=== PATIENT | male | born 1955 | race Caucasian/White ===

== ENCOUNTER 2018-05-25 14:42 | Inpatient (IN) | payer MEDICARE ==
[~2018-05-25] VITALS: Ht 185.4 cm; Wt 90.7 kg
[2018-05-25 18:19] VITALS: BP 146/86
[2018-05-25] MEDS ORDERED: MAGNESIUM HYDROXIDE 30 ML UDC PO PRN (18:30)
[2018-05-25] MEDS ORDERED: MAG HYDROX/AL HYDROX/SIMETH 30 ML UDC PO PRN (18:30)
[2018-05-25] MEDS ORDERED: ACETAMINOPHEN 325 MG TABLET PO PRN (18:30)
--- NOTE | 2018-05-25 18:30 | NUR ---
GPS/RN RECEIVED PT DIREST ADMIT FROM [facility] ON 5150 FOR DTO PT IS AMBULATORY NO SI OR HI AT THE TIME OF ADMISSION. VSS. ADMITTING ORDERS FROM DR CAMARENA RECEIVED AND CARRIED OUT. PROPERTY CHECKED FOR CONTRABAND. DINNER PROVIDED. FACE PICTURES TAKEN BUT PT REFUSED FULL BODY ASSESSMENT AT THIS TIME. NO ACTIVE HOME MEDICATIONS REPORTED THE TIME OF ADMISSION.CONSENTS SIGN .PT PROVIDED WITH SHOWER. ENDORSED TO NOVEM RN TO CONTINUE WITH ADMISSION.
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
[2018-05-26] MEDS: DIVALPROEX SODIUM 250 MG TABLET.DR PO SCH ×3 (10:00→21:00)
[2018-05-26] MEDS: HALOPERIDOL 5 MG TABLET PO SCH ×2 (11:02→17:28)
[2018-05-26] MEDS: BENZTROPINE MESYLATE (1 MG) 1 MG TABLET PO SCH ×2 (11:02→17:28)
[2018-05-26] MEDS: LORAZEPAM 0.5 MG TABLET PO PRN (11:03)
--- NOTE | 2018-05-26 11:08 | NUR ---
GPS/RN-NOTES PATIENT SELECTIVE WITH MEDICATIONS,AGITATED AND VERBALLY THREATENING TO THE HEALTH INSURANCE ADJUSTER AND DR. DICKERSON. REFUSED DEPAKOTE AGREED TO TAKE HALDOL AND COGENTIN ONLY.NOTED PATIENT ALSO WITH ANGRY AND THREATENING BEHAVIOR. STATED" GET OUT AND GO TO HELL,IM SMARTER THAN YOU ALL". PATIENT AGREED TO HAVE ATIVAN 1MG P.O PRN ORDER. WILL CONT. MONITORING FOR SAFETY AND BEHAVIOR.
--- NOTE | 2018-05-26 12:10 | NUR ---
GPS/RN-NOTES PATIENT EATING HIS LUNCH,CALM NO ACUTE DISTRESS NOTED.
--- NOTE | 2018-05-26 21:14 | NUR ---
GPS RN NOTE: PATIENT REFUSED SCHEDULED DEPAKOTE. PATIENT STATED "IT'S A POISON AND IT MAKES ME BURP". DESPITE OF EDUCATION PT. STRONGLY REFUSED. WILL CONTINUE TO MONITOR.
[2018-05-27] MEDS: HALOPERIDOL 5 MG TABLET PO SCH ×2 (08:20→16:29)
[2018-05-27] MEDS: BENZTROPINE MESYLATE (1 MG) 1 MG TABLET PO SCH ×2 (08:20→16:29)
[2018-05-27] MEDS: DIVALPROEX SODIUM 250 MG TABLET.DR PO SCH (08:20)
--- NOTE | 2018-05-27 09:42 | NUR ---
TARASOFF REPORT: SW contacted [facility] [phone] and spoke with Lisa, social security specialist who confirmed IRENE DiazW who wrote pts hold contacted [place] PD Department to make a TARASOFF report. Police Department stated that they do not have an office by the name of "Jose G Charlton" who pt identified as wanting to kill.
--- NOTE | 2018-05-27 10:32 | NUR ---
TARASOFF REPORT: SW contacted [facility] Police Station Address: [address] [place] [address] and left a voicemail with detectives informing them pt has reported that once discharged he will kill all police officers. SW will continue to attempt to reach a campus police officer to make a report.
[2018-05-27] MEDS: GABAPENTIN 100 MG CAPSULE PO SCH ×3 (10:49→16:29)
--- NOTE | 2018-05-27 12:46 | NUR ---
GPS RN NOTE: PT REFUSED SKIN ASSESSMENT, REFUSED VS,REFUSED LABS , REFUSED TO SIGN PAPER TO OBTAIN MEDICAL RECORD, PT EASILY AGITATED, THREADING AFTER DISCHARGE TO KILL POLICE OFFICERS. CHARGE NURSE, PRESS WASHER, NOTIFIED. WILL CONTINUE MONITORING FOR SAFETY AND BEHAVIOR Q 15 MIN.
--- NOTE | 2018-05-27 20:00 | NUR ---
GPS RN NOTES: PT. REFUSED VITAL SIGNS , ENCOURAGED X3 , EXPLAINED RISKS AND BENEFITS , BUT STILL REFUSED .
[2018-05-28] MEDS: GABAPENTIN 100 MG CAPSULE PO SCH ×3 (08:09→17:33)
[2018-05-28] MEDS: HALOPERIDOL 5 MG TABLET PO SCH ×3 (08:10→17:33)
[2018-05-28] MEDS: BENZTROPINE MESYLATE (1 MG) 1 MG TABLET PO SCH ×2 (08:10→17:33)
--- NOTE | 2018-05-28 11:04 | NUR ---
INITIAL DISCHARGE PLAN: Per pt he wishes to return to his board and care located at [address] [place] [address]. SW will attempt to confirm pts current living situation as hold stated he is currently homeless. SW will help form a safe and proper discharge in collaboration with pt and MD.
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
--- NOTE | 2018-05-28 15:09 | NUR ---
KENIA received a phone call from katty Mccord clinician at [facility] Address: [address] [address], [place], [place] [address]. who confirmed pt is chronically homeless however, has accepted transitional housing at [address] [place] [address]. Suri stated that is where pt will go once discharged from the hospital. Suri, also stated that pt is under the care of Kay Bruce PA-C who will continue treating pt.
[2018-05-29 08:00] VITALS: BP 169/98
[2018-05-29] MEDS: GABAPENTIN 100 MG CAPSULE PO SCH ×3 (09:09→17:46)
[2018-05-29] MEDS: LORAZEPAM 0.5 MG TABLET PO PRN (09:09)
--- NOTE | 2018-05-29 09:09 | NUR ---
RN NOTE :PATIENT C/O ANXIETY MEDICATED WITH ATIVAN 1MG PO X1.
[2018-05-29] MEDS: BENZTROPINE MESYLATE (1 MG) 1 MG TABLET PO SCH ×2 (09:10→17:46)
[2018-05-29] MEDS: HALOPERIDOL 5 MG TABLET PO SCH ×3 (09:11→17:47)
--- NOTE | 2018-05-29 15:19 | NUR ---
KENIA met with Manager Outreach Watts who came to serve pt with a restraining order from pts brother Adelso Weaver [phone]. Due to pt being on a hold, legally pt is unable to be served until he is discharged from the hospital. KENIA will give packet to pt and instruct him to read and sign paperwork that he needs to mail to the 's Department acknowledging he received the restraining order.
--- NOTE | 2018-05-29 20:00 | NUR ---
GPS RN NOTES: PT. REFUSED VITAL SIGNS , ENCOURAGED X3 , EXPLAINED RISKS AND BENEFITS , BUT STILL REFUSED .
[2018-05-30] MEDS: HALOPERIDOL 5 MG TABLET PO SCH ×3 (08:11→16:18)
[2018-05-30] MEDS: BENZTROPINE MESYLATE (1 MG) 1 MG TABLET PO SCH ×2 (08:11→16:18)
[2018-05-30] MEDS: GABAPENTIN 100 MG CAPSULE PO SCH ×3 (08:11→16:18)
--- NOTE | 2018-05-30 11:04 | NUR ---
RN-CO: FAXED TO [facility] THE AUTHORIZATION OF THE PATIENT FOR THE DISCLOSURE OF HIS MEDICAL RECORDS.RE: HIS H&P PER ANA MARIA MCHUGH'S ORDER AND CHEST XRAY PER REQUEST OF THE PATIENT. AWAITING FOR THE RECORDS. Addendum: 05/30/18 at 1108 by VIVIENNE SALAS RN RN-CO: [facility] MEDICAL RECORD TEL NO. [phone], FAX NO [phone].
--- NOTE | 2018-05-30 11:48 | NUR ---
RN-CO: CORRECTED FAX NUMBER: OF [facility] IN [place] [phone]
--- NOTE | 2018-05-30 14:05 | NUR ---
KENIA contacted [facility] Civil Management [place] [phone] and spoke with clerk Ivone and informed her that the restraining order brought to the pt at the hospital by Deputy Monroe has not been giving to pt yet and also stated that the hospital administration is discussing how to proceed with giving pt the restraining order. KENIA informed the video rental clerk that pt will be discharging on Sunday06/04/18. Ivone stated that Deputy Monroe was out of the office until Sunday06/03/18 and would give the information to the [place] on duty
--- NOTE | 2018-05-30 14:10 | NUR ---
KENIA received a call from Lani pts showcase maker at [facility] Address: [address] [address], [place], [place] [address] requesting discharge information for pt. KENIA informed her that pt is discharging on Sunday06/04/18 and also informed her that pt will be served with a restraining order placed by pts brother Adelso. Lani was shocked to hear that pts brother has placed a restraining order against pt. KENIA provided her with [facility]'s Department contact information and informed her that hospital administration is currently working on how to handle giving the restraining order to pt. KENIA also informed her that pt is unaware that the restraining exist and asked for her not to inform pt until KENIA had discussed with pts treatment team and hospital administration. Lani agreed.
--- NOTE | 2018-05-30 15:38 | NUR ---
RN-CO: TRIED TO FAX THE AUTHORIZATION FOR DISCLOSURE OF HEALTH INFORMATION TO [facility] SEVERAL TIMES W/ BUSY RESPONSE. HOWEVER VERIFIED FAX NUMBER IF CORRECT. WILL CONTINUE TRYING.
[2018-05-31 08:00] VITALS: BP 145/78
[2018-05-31] MEDS: HALOPERIDOL 5 MG TABLET PO SCH ×2 (08:04→16:23)
[2018-05-31] MEDS: GABAPENTIN 100 MG CAPSULE PO SCH ×4 (08:04→21:06)
[2018-05-31] MEDS: BENZTROPINE MESYLATE (1 MG) 1 MG TABLET PO SCH ×2 (08:04→16:23)
--- NOTE | 2018-05-31 19:40 | NUR ---
RN OPENING NOTES RECEIVED REPORT FROM DAYSHIFT RN. FOUND Pt AWAKE, IN THE BATHROOM. NO S/S OF ACUTE DISTRESS OR SOB NOTED. RESPIRATIONS EVEN AND UNLABORED. SAFETY MEASURES IN PLACE. WILL CONTINUE TO MONITOR Pt's CONDITION AND SAFETY THROUGHOUT THE NIGHT.
--- NOTE | 2018-05-31 21:05 | NUR ---
RN NOTES Pt REFUSED THE 2000 VITAL SIGN
[2018-05-31] MEDS: ZOLPIDEM TARTRATE 5 MG TABLET PO PRN (21:07)
--- NOTE | 2018-06-01 07:32 | NUR ---
RN MAYDA NOTES NO SIGNIFICANT CHANGES IN Pt's CONDITION. Pt REMAINS STABLE PER BASELINE. NO S/S OF ACUTE DISTRESS OR SOB NOTED DURING THE NIGHT. ALL NEEDS MET AND ATTENDED. SAFETY MEASURES IN PLACE. ENDORSED TO CELINA LEMONS FOR Pt's ALVAREZ.
[2018-06-01] MEDS: HALOPERIDOL 5 MG TABLET PO SCH ×2 (09:34→17:12)
[2018-06-01] MEDS: BENZTROPINE MESYLATE (1 MG) 1 MG TABLET PO SCH ×2 (09:34→17:11)
[2018-06-01 10:10] LABS: BASOPHILS % (AUTO) 0.9 % (0.0-2.0); EOSINOPHILS % (AUTO) 1.9 % (0.0-6.0); HEMATOCRIT 48 % (39-51); HEMOGLOBIN 15.9 g/dL (13.5-17.5); LYMPHOCYTES # (AUTO) 1.4 /CMM (0.8-4.8); LYMPHOCYTES % (AUTO) 30.1 % (20.0-44.0); MEAN CORPUSCULAR HGB CONC 33 g/dl (31.0-36.0); MEAN CORPUSCULAR VOLUME 87 fL (80-96); MONOCYTES # (AUTO) 0.4 /CMM (0.1-1.30); MONOCYTES % (AUTO) 7.8 % (2.0-12.0); NEUTROPHILS # (AUTO) 2.8 /CMM (1.8-8.9); NEUTROPHILS % (AUTO) 59.3 % (43.0-81.0); PLATELET COUNT (AUTO) 287 /CMM (150-450); RED BLOOD CELL COUNT(AUTO) 5.48 MIL/uL (4.5-6.0); WHITE BLOOD COUNT (AUTO) 4.8 K/uL (4.3-11.0)
[2018-06-01 10:17] LABS: CALCIUM, SERUM 8.5 mg/dL (8.5-10.1); CREATININE 0.9 mg/dL (0.6-1.3); POTASSIUM 4.3 mmol/L (3.5-5.1)
[2018-06-01] MEDS: GABAPENTIN 300 MG CAPSULE PO SCH ×3 (11:02→21:43)
--- NOTE | 2018-06-01 15:28 | NUR ---
walking about in halls,no complaints offered.
--- NOTE | 2018-06-01 18:57 | NUR ---
refused vitals all day.
[2018-06-01] MEDS: ZOLPIDEM TARTRATE 5 MG TABLET PO PRN (22:05)
[2018-06-02] MEDS: GABAPENTIN 300 MG CAPSULE PO SCH ×4 (09:31→20:18)
[2018-06-02] MEDS: BENZTROPINE MESYLATE (1 MG) 1 MG TABLET PO SCH ×2 (09:31→17:04)
[2018-06-02] MEDS: HALOPERIDOL 5 MG TABLET PO SCH ×2 (09:32→17:04)
[2018-06-02] MEDS: ZOLPIDEM TARTRATE 5 MG TABLET PO PRN (22:48)
[2018-06-03] MEDS: HALOPERIDOL 5 MG TABLET PO SCH (08:42)
[2018-06-03] MEDS: BENZTROPINE MESYLATE (1 MG) 1 MG TABLET PO SCH (08:42)
[2018-06-03] MEDS: GABAPENTIN 300 MG CAPSULE PO SCH (08:42)
--- NOTE | 2018-06-03 09:30 | NUR ---
KENIA contacted Suri, pts clinician at [facility] Address: [address] [id number], [place], [place] [address] to inform her pt is discharging on this present day. Suri stated that due to short notice mental health team is unable to transport pt home. KENIA also provided her with the contact information for Follow Up Rep's Department and informed her about the existing restraining order. She state she would contact the Follow Up Rep's Department to inquire more on restraining order. KENIA also faxed clinical paperwork to [phone]
--- NOTE | 2018-06-03 09:30 | NUR ---
RN-CO: DR CAMARENA SEEN AND EXAMINED THE PATIENT WITH ORDER TO DISCONTINUE HOLD AND DISCHARGE PATIENT TODAY. EUGENIE ZEPEDA FULLER BRUSH WORKER ALSO SEEN THE PATIENT AND MEDICALLY CLEARED THE PATIENT FOR DISCHARGE. PATIENT REMAIN CALM AND COOPERATIVE. DENIED SUICIDAL AND HOMICIDAL IDEATION. DENIED AUDITORY AND VISUAL HALLUCINATION. ALL DISCHARGE PAPERS AND PRESCRIPTION WAS EXPLAINED TO THE PATIENT AND HE VERBALIZED UNDERSTANDING. PATIENT'S SHIPYARD LABORER IS AWARE OF HIS DISCHARGE (JEREMY- [phone]) PATIENT IS GOING HOME AND WAS PICKED UP BY [employer]. PATIENT WAS ESCORTED BY STAFF IN THE LOBBY WITH ALL HIS BELONGINGS AND VALUABLES AT 1315.
--- NOTE | 2018-06-03 09:39 | NUR ---
KENIA contacted [facility] Civil Management [place] [facility] [phone] and spoke with clerk Ping and informed her that pt is discharging on this present day. She stated that per [facility]'s Department system, it was stated that Deputy Monroe was unable to serve pt due to pt being hospitalized and the nursing supervision, Shari, not providing the [place] with any information due to HIPAA and pt is now classified in their system as not found. KENIA informed her that Deputy Monroe dropped off the restraining order in an envelope at the nurses station. Ping stated that she would have Deputy Monroe call KENIA as the information in their system is different than what KENIA informed her.
--- NOTE | 2018-06-03 10:29 | NUR ---
KENIA contacted [facility] Department Civil Management [place] [facility] Office [phone] and spoke with Jammie, station supervisor and she confirmed that Deputy Monroe wrote in his notes that the document was not served and that the restraining order was pending. KENIA informed Jammie, that Deputy Monroe left the restraining order here and advised SW to give pt the documents once discharged. Jammie, spoke with Heidi Ji who stated that the Plaintiff who is pts brother Lopez Weaver requested [place] Monroe leave restraining order at the hospital. Per Jammie, she stated that it was up to the hospitals digression whether or not they wanted to give the restraining order to the pt.
--- NOTE | 2018-06-03 11:02 | NUR ---
KENIA faxed clinical information to katty Mccord clinician at [facility] Address: [address] [place] [address], [place], [place] .
--- NOTE | 2018-06-03 12:37 | NUR ---
KENIA received a phone call from pts brother Lopez Weaver [phone] asking SW to serve pt with restraining order. KENIA informed him that due to hospital policy, SW was unable to sign and serve pt. SW advised brother to coordinate with 's Department.
--- NOTE | 2018-06-03 12:40 | NUR ---
DISCHARGE NOTE: Pt was discharged at 12:30pm via taxi voucher to his transitional home at [address] [facility] [address]. Pts case packer Lani [phone] ex:[phone] has been notified and will be visiting pt this afternoon. Pt will be seen by Kay Bruce NP, [place] Address: [address] [place] [address] on Monday June 04, 2018 at 9:00am to continue psychiatric treatment. Pt was given a referral to [facility] Medical [place] [address] [facility] [id number] . Patient was provided referrals to address his substance/alcohol use. Patient was referred to [facility]: [address] [place] [address] and will report for an Intake on Monday June 04, 2018 before 5:00pm. Additional resources included [facility] [address] [place] [address] and [facility] [address] [place] [address] . For smoking cessation, patient was referred to the [employer] [place] [employer] and [employer] [place] [employer] [id number]. Pt will also participate in a telephone meeting with [facility] [phone] on Monday June 04, 2018 at 12:00pm. The multidisciplinary exitcare form was done, printed, signed, and given to the patient. Addendum: 06/03/18 at 1342 by SANDRA AQUINO Pts mood is euthymic with congruent affect. Pt denied suicidal/homicidal ideations and denied visual/auditory hallucinations.
--- NOTE | 2018-06-19 13:13 | NUR ---
15 DAY SUBSTANCE ABUSE FOLLOW UP: unable to follow up due to pt having no phone.
== END 2018-06-03 13:12 | disposition home or self-care (01) | DRG 885 ==
LOC: GPS 17:52
PROVIDERS: ADMIT Psychiatry & Neurology Psychiatry; ATTEND Psychiatry & Neurology Psychiatry
DX: F25.0 Schizoaffective disorder, bipolar type (principal); Z59.0 Homelessness; Z91.19 Patient's noncompliance with other medical treatment and regimen; R45.850 Homicidal ideations; Z73.6 Limitation of activities due to disability
CPT/HCPCS: 36415; 80048-TC; 80061-TC; 85025-TC

== ENCOUNTER 2021-08-11 19:58 | Inpatient (IN) | payer MEDICARE, OTHER ==
[~2021-08-11] VITALS: Ht 188 cm; Wt 98.0 kg
[2021-08-11 20:00] VITALS: BP 119/57
[2021-08-11] MEDS ORDERED: AMLO-213 PO (20:34)
[2021-08-11] MEDS ORDERED: GABA300C PO (20:35)
[2021-08-11] MEDS ORDERED: QUET100T PO (20:36)
[2021-08-11] MEDS ORDERED: OLAN10TA3 PO (20:37)
[2021-08-11] MEDS ORDERED: TRAZ-182 PO (20:37)
[2021-08-11] MEDS ORDERED: CELE100C2 PO (20:38)
[2021-08-11] MEDS ORDERED: MAGNESIUM HYDROXIDE 30 ML UDC PO PRN (21:00)
[2021-08-11] MEDS ORDERED: MAG HYDROX/AL HYDROX/SIMETH 30 ML UDC PO PRN (21:00)
[2021-08-11] MEDS ORDERED: BLOOD SUGAR DIAGNOSTIC 1 EACH STRIP IN ONE (21:00)
[2021-08-11] MEDS ORDERED: ZOLPIDEM TARTRATE 5 MG TABLET PO PRN (21:00)
[2021-08-11 23:32] VITALS: BP 127/80
--- NOTE | 2021-08-11 23:56 | NUR ---
RN NOTES : ADMISSION NOTES: ADMITTED THIS 66Y/O MALE PATIENT ADMIT FROM [facility], ADMITTED TO GPS ON 5150 HOLD, PER HOLD DTS, SUICIDAL IDEATION IN THE CONTEXT OF ALCOHOL ABUSE AND NON ADHERENCE TO MEDICATION ,UPON FACE TO FACE ASSESSMENT PATIENT IS A&O X 3 UNCOOPERTIVE, AGGRESSIVE, HYPERVERBAL , DISORGNIZED, FORGETFUL, ,DISHELVED ,EASILY AGITATED , VERY POOR HYGINE , DENIES SI /HI AT THIS TIME, PT. IS POOR HISTORIAN, POOR INSIGHT ,POOR JUDGEMENT , BOTH MD AWARE AND NOTIFIED OF THE ADMISSION, BELONGINGS CONTRABAND WERE DONE , PT. REFUSED TO SIGNS ADMISSION CONSENT PAPERS DUE TO TIRED , REFUSED SKIN ASSESSMENT REFUSED ACCU CHECK , ENCOURAGED PT. STRONGLY REFUSED , ENCOURAGED BUT PT. STILL REFUSED, PT. IS POOR HISTORIAN, POOR INSIGHT ,POOR JUDGEMENT , BOTH MD AWARE AND NOTIFIED OF THE ADMISSION, BELONGINGS CONTRABAND WERE DONE ,ENCOURAGED PT. TO TAKE SHOWER, PT. RIGHTS DISCUSS BY MANAGER E LEARNING , PROVIDE THE PT. WITH HANDBOOK, AND MEDICATIONS GUIDE, ENVIRONMENTAL SAFETY CHECK DONE, ENCOURAGED PT. VERBALIZED ANY FEELING CONCERN TO STAFF, ORIENT TO UNIT POLICY, NO ACUTE DISTRESS NOTED,VITAL SIGNS WNL ,DENIES ANY PAIN AT THIS TIME,WILL CONTINUE TO MONITOR FOR Q15 SAFETY AND BEHAVIOR.
--- NOTE | 2021-08-12 00:07 | NUR ---
RN NOTES : REFUSED SKIN ASSESSMENT PT. REFUSED SKIN ASSESSMENT AND PHOTOS TAKEN , PT. BEHAVIOR UNCOOPERTIVE , NONREDIRECTABLE, LOUD HYPERVERBAL , ENCOURAGED RISKS AND BENEFITS EXPLINED BUT PT. STRONGLY REFUSED ,PER PT. MY SKIN IS FINE , WILL CONTINUE TO MONITOR.
--- NOTE | 2021-08-12 01:13 | NUR ---
RN NOTES : PT. REFUSED MRSA NARES SWAB , PT. BEHAVIOR UNCOOPERTIVE , NONREDIRECTABLE , ENCOURAGED RISKS AND BENEFITS EXPLINED BUT PT. STRONGLY REFUSED .
--- NOTE | 2021-08-12 06:43 | NUR ---
RN NOTES: PLACE CALLED TO [phone], REGARDING ABOUT PT. ADMIT TO [facility] .
[2021-08-12] MEDS: ACETAMINOPHEN 325 MG TABLET PO PRN ×2 (06:58→16:13)
--- NOTE | 2021-08-12 06:58 | NUR ---
GPS RN NOTE, PATIENT HAS A COMPLAINT OF A HEADACHE AT 3 OUT 10 ON THE PAIN SCALE AND IS REQUESTING TYLENOL AT THIS TIME. PATIENT VITAL SIGNS ARE STABLE. GAVE TYLENOL 650MG PO Q6HR PRN ORDERED. WILL REASSESS PAIN AND I WILL CONTINUE TO MONITOR THIS PATIENT WITH THE HELP OF STAFF.
[2021-08-12 08:00] VITALS: BP 143/70
[2021-08-12] MEDS: CELECOXIB 100 MG CAPSULE PO SCH ×2 (08:55→21:07)
[2021-08-12] MEDS: AMLODIPINE BESYLATE 10 MG TABLET PO SCH (08:55)
[2021-08-12] MEDS: NICOTINE PATCH (21MG) 21 MG PATCH.TD24 TD SCH (08:55)
--- NOTE | 2021-08-12 10:42 | NUR ---
KENIA Initial Discharge Plan: Pt is currently homeless and would want this global technical writer to find him a facility. Pt stated he has no supportive contact at this time. KENIA will work with the MD, treatment team, and pt to help coordinate appropriate discharge.
--- NOTE | 2021-08-12 10:43 | NUR ---
Clinical Social Work Note: Pt placed on a 5150 hold for danger to himself. Per hold, pt was brought to the hospital because he has suicidal thoughts and was drinking. Pt is currently homeless and would want this video game script writer to find him a facility. Pt stated he has no supportive contact at this time.
--- NOTE | 2021-08-12 10:44 | NUR ---
Social Work Note/Substance Abuse Intervention: Patient was provided with a brief substance abuse intervention and referred to [facility] ([phone]), [facility] ([phone]), and [facility] ([phone]) for drinking alcohol, smoking, and have used Meth.
[2021-08-12] MEDS: LamoTRIgine 25 MG TABLET PO SCH ×2 (11:21→21:07)
[2021-08-12] MEDS: ENSURE ENLIVE 237 ML LIQUID (VANILLA) PO SCH ×2 (13:07→16:13)
[2021-08-12 14:45] LABS: BASOPHILS # (AUTO) 0.1 K/uL (0.0-0.2); BASOPHILS % (AUTO) 0.8 % (0.0-2.0); EOSINOPHILS % (AUTO) 4.3 % (0.0-6.0); HEMATOCRIT 37 % (39-51); HEMOGLOBIN 12.7 g/dL (13.5-17.5); LYMPHOCYTES # (AUTO) 2.1 K/uL (0.8-4.8); LYMPHOCYTES % (AUTO) 28.6 % (20.0-44.0); MEAN CORPUSCULAR HGB CONC 34 g/dl (31.0-36.0); MEAN CORPUSCULAR VOLUME 85 fL (80-96); MONOCYTES # (AUTO) 0.5 K/uL (0.1-1.30); MONOCYTES % (AUTO) 6.5 % (2.0-12.0); NEUTROPHILS # (AUTO) 4.4 K/uL (1.8-8.9); NEUTROPHILS % (AUTO) 59.8 % (43.0-81.0); PLATELET COUNT (AUTO) 303 K/uL (150-450); RED BLOOD CELL COUNT(AUTO) 4.41 MIL/uL (4.5-6.0); WHITE BLOOD COUNT (AUTO) 7.4 K/uL (4.3-11.0)
[2021-08-12 15:43] LABS: CALCIUM, SERUM 8.7 mg/dL (8.5-10.1); CREATININE 1.1 mg/dL (0.6-1.3); POTASSIUM 4.1 mmol/L (3.5-5.1)
[2021-08-12 16:00] VITALS: BP 143/82
[2021-08-12] MEDS: LORAZEPAM 1 MG TABLET PO PRN (20:12)
--- NOTE | 2021-08-12 20:15 | NUR ---
GPS RN NOTE: ANXIETY PATIENT IS VERY ANXIOUS, RESTLESS, PACING IN AND OUT OF HIS ROOM, LOUD, HYPERVERBAL. OFFERED ATIVAN 1 MG TAB TO THE PATIENT AND PATIENT TOOK IT. WILL CONTINUE TO MONITOR FOR ANY CHANGES.
[2021-08-12] MEDS: ARIPIPRAZOLE 5 MG TABLET PO SCH (21:37)
--- NOTE | 2021-08-12 22:57 | NUR ---
PATIENT C/O LEFT LEG PAIN 01/16 BUT WANTS TO TAKE TRAMADOL ONLY AT THIS TIME. ZURI VERA NOTIFIED AND RECEIVED NEW ORDER OF TRAMADOL 50 MG PO Q8H PRN FOR PAIN. ORDER NOTED AND CARRIED OUT. Addendum: 08/12/21 at 2301 by NISH HOLM RN PATIENT HAS BEEN AMBULATING IN AND OUT OF HIS ROOM FREQUENTLY, SLIGHTLY LIMPING OCCASIONALLY.
[2021-08-12] MEDS: TRAMADOL HCL 50 MG TABLET PO PRN (23:07)
--- NOTE | 2021-08-12 23:10 | NUR ---
GPS RN NOTE: PAIN PATIENT C/O LEFT LEG PAIN 10/16 AND WANTED TO TAKE TRAMADOL ONLY. PRN TRAMADOL 50 MG PO ADMINISTERED. WILL CONTINUE TO MONITOR.
[2021-08-13] MEDS: LORAZEPAM 1 MG TABLET PO PRN (04:00)
--- NOTE | 2021-08-13 04:02 | NUR ---
GPS RN NOTE: ANXIETY PATIENT C/O OF FEELING ANXIOUS AND WANTED TO TAKE ATIVAN, STATED," I NEED ATIVAN, IT'S BEEN 6 HOURS.". PRN ATIVAN 1 MG PO ADMINISTERED.
[2021-08-13] MEDS: ACETAMINOPHEN 325 MG TABLET PO PRN (04:27)
[2021-08-13 08:00] VITALS: BP 158/90
[2021-08-13] MEDS: NICOTINE PATCH (21MG) 21 MG PATCH.TD24 TD SCH (08:07)
[2021-08-13] MEDS: CELECOXIB 100 MG CAPSULE PO SCH ×2 (08:07→21:11)
[2021-08-13] MEDS: LamoTRIgine 25 MG TABLET PO SCH ×2 (08:07→21:11)
[2021-08-13] MEDS: AMLODIPINE BESYLATE 10 MG TABLET PO SCH (08:08)
[2021-08-13] MEDS: ENSURE ENLIVE 237 ML LIQUID (VANILLA) PO SCH ×3 (08:08→16:44)
[2021-08-13] MEDS: TRAMADOL HCL 50 MG TABLET PO PRN ×2 (08:33→16:49)
--- NOTE | 2021-08-13 09:00 | NUR ---
GPS/RN RECEIVED PT RESTING IN THE BED NO ACUTE DISTRESS NOTED. DAILY MEDS COMPLIANT. AMBULATORY. VSS. ALL NEEDS ATTENDED AND ANTICIPATED. WILL CONTINUE TO MONITOR Q15MIN FOR SAFETY AND BEHAVIOR
[2021-08-13] MEDS: ASPIRIN 81 MG TAB.CHEW PO SCH (15:09)
[2021-08-13 16:00] VITALS: BP 143/77
[2021-08-13 20:21] VITALS: BP 143/78
[2021-08-13 20:30] VITALS: BP 143/78
[2021-08-13] MEDS: ATORVASTATIN 10 MG TABLET PO SCH (21:35)
[2021-08-13] MEDS: ARIPIPRAZOLE 5 MG TABLET PO SCH (21:35)
[2021-08-14] MEDS: TRAMADOL HCL 50 MG TABLET PO PRN ×3 (01:11→21:39)
--- NOTE | 2021-08-14 01:13 | NUR ---
GPS RN NOTE: PAIN PATIENT C/O GENERALIZED BODY PAIN 10/16 AND WANTED TO TAKE TRAMADOL ONLY. PRN TRAMADOL 50 MG PO ADMINISTERED. WILL CONTINUE TO MONITOR.
[2021-08-14 08:00] VITALS: BP 151/87
[2021-08-14] MEDS: ENSURE ENLIVE 237 ML LIQUID (VANILLA) PO SCH ×3 (08:44→16:03)
[2021-08-14] MEDS: CELECOXIB 100 MG CAPSULE PO SCH ×2 (08:46→21:15)
[2021-08-14] MEDS: ASPIRIN 81 MG TAB.CHEW PO SCH (08:46)
[2021-08-14] MEDS: LamoTRIgine 25 MG TABLET PO SCH ×2 (08:46→21:15)
[2021-08-14] MEDS: AMLODIPINE BESYLATE 10 MG TABLET PO SCH (08:47)
[2021-08-14] MEDS: NICOTINE PATCH (21MG) 21 MG PATCH.TD24 TD SCH (08:47)
--- NOTE | 2021-08-14 09:00 | NUR ---
GPS/RN RECEIVED PT RESTING IN THE BED NO ACUTE DISTRESS NOTED. COMPLIANT WITH DAILY MEDICATIONS. AMBULATORY. EASILY AGITATED AND PARANOID. ALL NEEDS ATTENDED AND ANTICIPATED. WILL CONTINUE TO MONITOR Q15MIN FOR SAFETY AND BEHAVIOR.
[2021-08-14 16:00] VITALS: BP 148/81
--- NOTE | 2021-08-14 19:20 | NUR ---
GPS RN NOTES RECEIVED PATIENT IN BED RESTING COMFORTABLY. ALERT AND ORIENTED X3. NO S/SX OF ACUTE DISTRESS NOTED. PATIENT REMAINS PASSIVE, WITHDRAWN, LABILE, DENIES SI/HI/AVH AT THIS TIME. VERBALIZATION OF FEELINGS ENCOURAGED. SAFETY PRECAUTIONS IN PLACE. WILL CONTINUE TO MONITOR Q15MIN ROUNDS FOR SAFETY AND BEHAVIOR.
--- NOTE | 2021-08-14 20:00 | NUR ---
GPS RN NOTES PATIENT REFUSED WEEKLY SKIN ASSESSMENT.
[2021-08-14 20:21] VITALS: BP 153/77
[2021-08-14] MEDS: ARIPIPRAZOLE 5 MG TABLET PO SCH (21:15)
[2021-08-14] MEDS: ATORVASTATIN 10 MG TABLET PO SCH (21:15)
[2021-08-15] MEDS: TRAMADOL HCL 50 MG TABLET PO PRN ×3 (06:09→22:35)
[2021-08-15 08:00] VITALS: BP 154/98
[2021-08-15] MEDS: ASPIRIN 81 MG TAB.CHEW PO SCH (08:43)
[2021-08-15] MEDS: AMLODIPINE BESYLATE 10 MG TABLET PO SCH (08:43)
[2021-08-15] MEDS: CELECOXIB 100 MG CAPSULE PO SCH ×2 (08:43→21:24)
[2021-08-15] MEDS: LamoTRIgine 25 MG TABLET PO SCH (08:43)
[2021-08-15] MEDS: NICOTINE PATCH (21MG) 21 MG PATCH.TD24 TD SCH (08:44)
[2021-08-15] MEDS: ENSURE ENLIVE 237 ML LIQUID (VANILLA) PO SCH ×3 (08:48→16:22)
--- NOTE | 2021-08-15 09:10 | NUR ---
SNF Referral: KENIA sent clinicals to Wing Chen from [facility] ([phone]) for placement option. KENIA will send H & P, progress notes, and medication list.
--- NOTE | 2021-08-15 11:22 | NUR ---
RN-CO: PATIENT IS HAVING CONVERSATION WITH PEERS. RESTLESS, AND LOUD AT TIMES. NOTED THAT HE HAS POOR BOUNDARIES TO STAFF BUT HE IS COMPLIANT WITH MEDICATIONS.HE DENIED PAIN AND DISCOMFORTS. I WILL CONTINUE TO MONITOR.
[2021-08-15 16:00] VITALS: BP 123/76
[2021-08-15 19:43] VITALS: BP 104/62
--- NOTE | 2021-08-15 19:55 | NUR ---
GPS RN OPENING NOTES: RECEIVED PATIENT IN HALLWAY. A/O X3. APPEARS DEPRESSED, BLUNTED AFFECT, LABILE MOOD, HYPERVERBAL, DISORGANIZED. DENIES V/A HALLUCINATIONS AT THIS TIME. DENIES SI/HI AT THIS TIME. DENIES PAIN AT THIS TIME. NO S/S OF DISTRESS. RESPIRATION EVEN AND UNLABORED WITH EQUAL RISE AND FALL OF THE CHEST, ON ROOM AIR. OFFERED FLUID AND SNACKS TOLERATED. BED IN LOW LOCKED POSITION, SIDE RAILS UP X2 FOR SAFETY, CALL ARGUETA WITHIN REACH. WILL CONTINUE TO MONITOR Q15 FOR MOOD, SAFETY AND BEHAVIOR.
[2021-08-15] MEDS: LamoTRIgine 100 MG TABLET PO SCH (21:24)
[2021-08-15] MEDS: ARIPIPRAZOLE 5 MG TABLET PO SCH (21:24)
[2021-08-15] MEDS: ATORVASTATIN 10 MG TABLET PO SCH (21:25)
--- NOTE | 2021-08-15 21:33 | NUR ---
GPS RN NOTES: LAMICTAL 50MG WASTED PER PARTIAL DOSE ORDER.
--- NOTE | 2021-08-15 22:40 | NUR ---
GPS RN NOTES: Patient is restless, irritable, anxious with c/o generalized body pain. Tramadol 50mg 1 TAB given PO PRN ORDERED AT 2235. will continue to monitor.
[2021-08-16] MEDS: TRAMADOL HCL 50 MG TABLET PO PRN ×2 (06:43→12:23)
--- NOTE | 2021-08-16 06:44 | NUR ---
GPS RN NOTES: Tramadol 50mg 1TAB given PO PRN as ordered at 0642 for generalized body pain. Will continue to monitor.
[2021-08-16] MEDS: ENSURE ENLIVE 237 ML LIQUID (VANILLA) PO SCH ×3 (07:53→16:04)
[2021-08-16 08:00] VITALS: BP 136/87
[2021-08-16] MEDS: AMLODIPINE BESYLATE 10 MG TABLET PO SCH (08:01)
[2021-08-16] MEDS: ASPIRIN 81 MG TAB.CHEW PO SCH (08:02)
[2021-08-16] MEDS: NICOTINE PATCH (21MG) 21 MG PATCH.TD24 TD SCH (08:02)
[2021-08-16] MEDS: CELECOXIB 100 MG CAPSULE PO SCH ×2 (08:02→21:37)
[2021-08-16] MEDS: LamoTRIgine 100 MG TABLET PO SCH ×2 (08:02→21:38)
--- NOTE | 2021-08-16 10:01 | NUR ---
RN: PATIENT DENIED PAIN AND DISCOMFORTS. VISIBLE IN THE UNIT, LOUD AND MANIC. HE IS RESTLESS, BUT PARTICIPATING IN GROUPS. HE TOOK HIS MEDICATIONS IN THE MORNING AND ATE WELL. HE IS EASILY AGITATED, DISHEVLED AND UNKEMPT.
--- NOTE | 2021-08-16 11:17 | NUR ---
SNF Contact: SW received a call from Geometry Tutor Gustavo from [facility] ([phone]) who stated pt is accepted.
--- NOTE | 2021-08-16 11:17 | NUR ---
Court Notification: Pt does not have any supportive family to contact for 5250 hearing.
--- NOTE | 2021-08-16 11:17 | NUR ---
Court Hearing: Patient's court hearing for 0280 was today and it was upheld for GD.
--- NOTE | 2021-08-16 12:23 | NUR ---
RN-CO: PT REQUESTED FOR ULTRAM TABLET FOR C/O KERMIT SHOULDER PAIN 10/16.
[2021-08-16 16:00] VITALS: BP 131/94
--- NOTE | 2021-08-16 19:35 | NUR ---
GPS RN OPENING NOTES: RECEIVED PATIENT LAYING IN BED, AWAKE, A/O X3. BLUNTED AFFECT, LABILE MOOD, HYPERVERBAL, EASILY IRRITABLE, DISORGANIZED. DENIES V/A HALLUCINATIONS AT THIS TIME. DENIES SI/HI AT THIS TIME. DENIES PAIN AT THIS TIME. NO S/S OF DISTRESS. RESPIRATION EVEN AND UNLABORED WITH EQUAL RISE AND FALL OF THE CHEST, ON ROOM AIR. OFFERED FLUID AND SNACKS TOLERATED. BED IN LOW LOCKED POSITION, SIDE RAILS UP X2 FOR SAFETY, CALL ARGUETA WITHIN REACH. WILL CONTINUE TO MONITOR Q15 FOR MOOD, SAFETY AND BEHAVIOR.
[2021-08-16 19:39] VITALS: BP 127/72
[2021-08-16] MEDS: ARIPIPRAZOLE 5 MG TABLET PO SCH (21:37)
[2021-08-16] MEDS: ATORVASTATIN 10 MG TABLET PO SCH (21:49)
[2021-08-17] MEDS: TRAMADOL HCL 50 MG TABLET PO PRN ×3 (06:23→18:36)
[2021-08-17 08:00] VITALS: BP 147/81
[2021-08-17] MEDS: CELECOXIB 100 MG CAPSULE PO SCH ×2 (08:37→21:28)
[2021-08-17] MEDS: LamoTRIgine 100 MG TABLET PO SCH ×2 (08:37→21:28)
[2021-08-17] MEDS: ASPIRIN 81 MG TAB.CHEW PO SCH (08:37)
[2021-08-17] MEDS: NICOTINE PATCH (21MG) 21 MG PATCH.TD24 TD SCH (08:38)
[2021-08-17] MEDS: AMLODIPINE BESYLATE 10 MG TABLET PO SCH (08:38)
[2021-08-17] MEDS: ENSURE ENLIVE 237 ML LIQUID (VANILLA) PO SCH ×3 (08:40→17:28)
--- NOTE | 2021-08-17 10:00 | NUR ---
APS: SW received a call from SHAGGY Estrada ([phone]) who stated that she has a case open and that pt she will be visiting pt today at the hospital.
--- NOTE | 2021-08-17 13:13 | NUR ---
APS: SHAGGY Estrada ([phone]) came to the hospital to assess the pt. She provided pt with resources.
--- NOTE | 2021-08-17 15:51 | NUR ---
RN-NOTES PATIENT IN THE DAY ROOM WATCHING TV,NOTED WITH EASILY ANGRY AND DEMANDING BEHAVIOR. COMPLIANT WITH MEDICATIONS. AMBULATORY STEADY GAIT. ALL NEEDS ATTENDED AND ANTICIPATED. WILL CONT. MONITORING FOR SAFETY AND BEHAVIOR. WILL ENDORSE TO THE INCOMING SHIFT.
[2021-08-17 16:00] VITALS: BP 142/83
--- NOTE | 2021-08-17 19:20 | NUR ---
GPS RN NOTES RECEIVED PATIENT IN BED RESTING COMFORTABLY. ALERT AND ORIENTED X3. NO S/SX OF ACUTE DISTRESS NOTED. PATIENT REMAINS IRRITABLE, LABILE, DEMANDING TO STAFF. NO VERBALIZATION OF THOUGHTS AND FEELINGS. ENCOURAGED TO VERBALIZE FEELINGS AND CONCERNS. SAFETY PRECAUTIONS IN PLACE. WILL CONTINUE TO MONITOR Q15MIN ROUNDS FOR SAFETY AND BEHAVIOR.
--- NOTE | 2021-08-17 19:21 | NUR ---
RN-NOTES PATIENT IN THE DAY ROOM WATCHING TV,NO ACUTE DISTRESS NOTED. ENDORSED TO THE NIGHT NURSE FOR CONTINUITY OF CARE.
[2021-08-17 20:00] VITALS: BP 146/84
[2021-08-17] MEDS: ATORVASTATIN 10 MG TABLET PO SCH ×2 (21:28→21:32)
[2021-08-17] MEDS: ARIPIPRAZOLE 5 MG TABLET PO SCH (21:28)
--- NOTE | 2021-08-17 21:50 | NUR ---
GPS RN NOTES PATIENT REFUSED LIPITOR SCHEDULED AT 2200. DESPITE OF EXPLAINING THE IMPORTANCE. PT. STATED "NO, I DON'T TAKE LIPITOR, I AM ALLERGIC TO IT". WILL NOTIFY .
--- NOTE | 2021-08-17 22:00 | NUR ---
GPS RN NOTES REFUSED BY PATIENT PRN AMBIEN 0.5MG PO. WASTED IN THE OMNICELL AND MED DISPOSAL WITNESSED BY ANOTHER RN.
[2021-08-18] MEDS: TRAMADOL HCL 50 MG TABLET PO PRN ×4 (00:37→20:02)
[2021-08-18 08:00] VITALS: BP 151/88
[2021-08-18] MEDS: ASPIRIN 81 MG TAB.CHEW PO SCH (08:06)
[2021-08-18] MEDS: CELECOXIB 100 MG CAPSULE PO SCH ×2 (08:06→21:15)
[2021-08-18] MEDS: LamoTRIgine 100 MG TABLET PO SCH ×2 (08:06→21:15)
[2021-08-18] MEDS: AMLODIPINE BESYLATE 10 MG TABLET PO SCH (08:07)
[2021-08-18] MEDS: NICOTINE PATCH (21MG) 21 MG PATCH.TD24 TD SCH ×2 (08:09→09:19)
[2021-08-18] MEDS: ENSURE ENLIVE 237 ML LIQUID (VANILLA) PO SCH ×3 (08:26→16:03)
--- NOTE | 2021-08-18 09:29 | NUR ---
RN-CO: PATIENT DENIED PAIN AND DISCOMFORTS. COMPLIANT WITH MEDICATIONS AND TREATMENT. UNKEMPT AND DISHEVELED. LOUD BUT REDIRECTABLE.
[2021-08-18 16:00] VITALS: BP 149/80
--- NOTE | 2021-08-18 19:25 | NUR ---
RN NOTES PATIENT IN BED RESTING . ALERT AND ORIENTED X3. NO S/SX OF ACUTE DISTRESS NOTED. PT. REMAINS EASILY AGITATED , PARNOID, IRRITABLE, LABILE, DEMANDING TO STAFF. NO VERBALIZATION OF THOUGHTS AND FEELINGS. ENCOURAGED TO VERBALIZE FEELINGS AND CONCERNS. SAFETY PRECAUTIONS IN PLACE. WILL CONTINUE TO MONITOR Q15MIN ROUNDS FOR SAFETY AND BEHAVIOR.
[2021-08-18 20:00] VITALS: BP 145/81
--- NOTE | 2021-08-18 20:04 | NUR ---
RN NOTE: PAIN PATIENT C/O LEFT LEG PAIN 10/16 AND WANTED TO TAKE TRAMADOL . PRN TRAMADOL 50 MG PO ADMINISTERED. WILL CONTINUE TO MONITOR.
[2021-08-18] MEDS: ARIPIPRAZOLE 5 MG TABLET PO SCH (21:14)
[2021-08-19] MEDS: TRAMADOL HCL 50 MG TABLET PO PRN ×2 (02:17→08:53)
--- NOTE | 2021-08-19 07:59 | NUR ---
SW Discharge Note: Patient will be [facility] to [facility] to [facility] [address] [place] [address]; . Please arrange Ambulance transportation for patient to be picked up at 2PM. Customer Marketing Manager spoke with TAMIKO, Gym Teacher at [facility]; [phone], who stated patient will be accepted at facility today. Patient is alert and oriented x3. Patient denies any suicidal or homicidal ideations. Patient is aware and agreeable with discharge plans. Patient does not have any supportive contact. Patient will continue to follow-up with her Psychiatrist Dr. Sosa [id number] [address]; ([phone]) and Quality Control Director Dr. Hollis at [address] [facility] [address], [place] [address]; ([phone]). Patient presents with euthymic mood and congruent mood. Patient refused to sign the homeless waiver upon discharge and a copy was placed in the chart. Homeless resources were provided and include 211 information line for shelters and homeless resources.
[2021-08-19 08:00] VITALS: BP 145/84
[2021-08-19] MEDS: ENSURE ENLIVE 237 ML LIQUID (VANILLA) PO SCH ×2 (08:50→13:00)
[2021-08-19] MEDS: CELECOXIB 100 MG CAPSULE PO SCH (08:52)
[2021-08-19] MEDS: LamoTRIgine 100 MG TABLET PO SCH (08:52)
[2021-08-19] MEDS: NICOTINE PATCH (21MG) 21 MG PATCH.TD24 TD SCH (08:52)
[2021-08-19] MEDS: ASPIRIN 81 MG TAB.CHEW PO SCH (08:53)
[2021-08-19 08:54] VITALS: BP 145/84
[2021-08-19] MEDS: AMLODIPINE BESYLATE 10 MG TABLET PO SCH (08:54)
--- NOTE | 2021-08-19 13:16 | NUR ---
GPS/RN PT DISCHARGED TO facility to [facility] [address] [facility] [place] [address]; . REPORT GIVEN TO RAHAT PATRICK. NO SI OR HI AT THE TIME OF D/C. PROPERTY RETURNED. VSS. AMBULATORY. REFUSED PICTURES ON DISCHARGE. EXIT CARE INSTRUCTIONS AND PRESCRIPTIONS GIVEN AND UNDERSTOOD. LEFT VIA AMBULANCE
== END 2021-08-19 13:00 | DRG 885 ==
LOC: GPS 19:58
PROVIDERS: ADMIT Psychiatry & Neurology Psychiatry; ATTEND Internal Medicine
DX: F25.0 Schizoaffective disorder, bipolar type (principal); R45.851 Suicidal ideations; I10 Essential (primary) hypertension; Z59.00 Homelessness unspecified; Z20.822 Contact with and (suspected) exposure to COVID-19; F10.10 Alcohol abuse, uncomplicated; F19.10 Other psychoactive substance abuse, uncomplicated; F29 Unspecified psychosis not due to a substance or known physiological condition; E78.5 Hyperlipidemia, unspecified; Z91.14 Patient's other noncompliance with medication regimen
CPT/HCPCS: 36415; 80048-TC; 80061-TC; 85025-TC; 97116-TC; 97530-TC

== ENCOUNTER 2024-04-18 12:32 | Inpatient (IN) | payer MEDICARE, OTHER ==
[~2024-04-18] VITALS: Ht 188 cm; Wt 84.4 kg
[~2024-04-18 12:32] MED LIST: AMLO-213 PO; CELE100C2 PO
[2024-04-18] MEDS ORDERED: VALS320T2 PO (14:10)
[2024-04-18] MEDS ORDERED: TEMA15CA PO (14:10)
[2024-04-18] MEDS ORDERED: SENN8.6T19 PO (14:10)
[2024-04-18] MEDS ORDERED: LACT20SO4 PO (14:10)
[2024-04-18] MEDS ORDERED: OXCA150T13 PO (14:10)
[2024-04-18] MEDS ORDERED: LORA-259 PO (14:10)
[2024-04-18] MEDS ORDERED: OLAN10TA3 PO (14:10)
[2024-04-18] MEDS ORDERED: DOCU100T2 PO (14:10)
[2024-04-18 14:22] LABS: BASOPHILS % (AUTO) 0.3 % (0.0-2.0); EOSINOPHILS # (AUTO) 0.2 K/uL (0.0-0.7); EOSINOPHILS % (AUTO) 1.6 % (0.0-6.0); HEMATOCRIT 37 % (39-51); HEMOGLOBIN 12.7 g/dL (13.5-17.5); LYMPHOCYTES % (AUTO) 7.5 % (20.0-44.0); MEAN CORPUSCULAR HEMOGLOBIN 30 PG (26.0-33.0); MEAN CORPUSCULAR HGB CONC 34 g/dl (31.0-36.0); MEAN CORPUSCULAR VOLUME 88 fL (80-96); MONOCYTES # (AUTO) 0.7 K/uL (0.1-1.30); MONOCYTES % (AUTO) 5.3 % (2.0-12.0); NEUTROPHILS # (AUTO) 10.9 K/uL (1.8-8.9); NEUTROPHILS % (AUTO) 85.3 % (43.0-81.0); PLATELET COUNT (AUTO) 319 K/uL (150-450); RED BLOOD CELL COUNT(AUTO) 4.23 MIL/uL (4.5-6.0); RED CELL DISTRIBUTION WIDTH 14.9 % (11.5-15.0); WHITE BLOOD COUNT (AUTO) 12.8 K/uL (4.3-11.0)
[2024-04-18 14:27] LABS: ALANINE AMINOTRANSFERASE 42 U/L (12-78); ALBUMIN 3.6 g/dL (3.4-5.0); ALKALINE PHOSPHATASE 73 U/L (46-116); ASPARTATE AMINOTRANSFERASE 31 U/L (15-37); BILIRUBIN,DIRECT 0.2 mg/dL (0.0-0.2); BILIRUBIN,TOTAL 0.8 mg/dL (0.2-1.0); CALCIUM, SERUM 8.7 mg/dL (8.5-10.1); CHLORIDE 104 mmol/L (98-107); CREATININE 0.8 mg/dL (0.6-1.3); GLUCOSE 90 mg/dL (74-106); POTASSIUM 3.7 mmol/L (3.5-5.1); SODIUM SERUM 141 mmol/L (136-145); TOTAL PROTEIN, SERUM 7.8 g/dL (6.4-8.2); UREA NITROGEN, BLOOD 23 mg/dL (7-18)
[2024-04-18 14:35] LABS: CARBON DIOXIDE 30 mmol/L (21-32)
[2024-04-18 14:39] LABS: ACETAMINOPHEN <10 ug/ml (10-30); ALCOHOL, BLOOD < 10 mg/dL (0-10); SALICYLATE 1.1 mg/dL (2.8-20.0)
[2024-04-18 15:40] LABS: APPEARANCE,URINE Cloudy (CLEAR); BILIRUBIN,URINE Negative (NEGATIVE); BLOOD, URINE Trace-intact Ery/uL (NEGATIVE); COLOR,URINE YELLOW (YELLOW); KETONES,URINE Trace mg/dL (NEGATIVE); LEUKOCYTE ESTERASE ,URINE Trace (NEGATIVE); NITRITE, URINE Positive (NEGATIVE); PH,URINE 6.5 (5.0-8.0); PROTEIN,URINE 30 mg/dl (NEGATIVE); UGLUCOSE Negative (NEGATIVE); UROBILINOGEN,URINE 0.2 EU/dL (0.2)
[2024-04-18 15:50] LABS: AMPHETAMINE, URINE NEGATIVE (NEGATIVE); BARBITURATE, URINE NEGATIVE (NEGATIVE); BENZODIAZEPINE, URINE NEGATIVE (NEGATIVE); COCCAINE, URINE NEGATIVE (NEGATIVE); OPIATE, URINE NEGATIVE (NEGATIVE); PHENCYCLIDINE SCREEN,URINE NEGATIVE (NEGATIVE)
[2024-04-18 15:51] LABS: CANNABINOID, URINE POSITIVE (NEGATIVE)
[2024-04-18 15:59] LABS: ADD URINE CULTURE YES; BACTERIA,URINE Many /HPF (None Seen); SQUAMOUS EPITHELIAL CELL,UR Few /HPF (None Seen)
[2024-04-18] MEDS ORDERED: LEVOFLOXACIN (250MG) 250 MG TABLET ONE (16:55)
[2024-04-18] MEDS: LEVOFLOXACIN (250MG) 250 MG TABLET PO SCH (17:00)
[2024-04-18] MEDS: SENNOSIDES 8.6 MG TABLET PO SCH (22:00)
[2024-04-19 01:30] VITALS: BP 140/95; TEMP 98.2; O2SAT 94
[2024-04-19] MEDS ORDERED: ZOLPIDEM TARTRATE 5 MG TABLET PO PRN (02:00)
[2024-04-19] MEDS: BLOOD SUGAR DIAGNOSTIC 1 EACH STRIP IN ONE (02:14)
[2024-04-19] MEDS ORDERED: IBUPROFEN 800 MG TABLET PO PRN (03:30)
[2024-04-19] MEDS: IBUPROFEN 600 MG TABLET PO PRN (03:44)
[2024-04-19] MEDS: ACETAMINOPHEN 325 MG TABLET PO PRN (06:27)
[2024-04-19 08:00] VITALS: BP 152/93; TEMP 98; O2SAT 96
[2024-04-19] MEDS: VALSARTAN 80 MG TABLET PO SCH (08:34)
[2024-04-19] MEDS: NICOTINE PATCH (21MG) 21 MG PATCH.TD24 TD SCH (08:34)
[2024-04-19] MEDS: DOCUSATE SODIUM 100 MG CAPSULE PO SCH (08:34)
[2024-04-19] MEDS: OXCARBAZEPINE 150 MG TABLET PO SCH (08:34)
[2024-04-19] MEDS ORDERED: OLANZAPINE ZYDIS 5 MG TAB.RAPDIS PO PRN (10:00)
[2024-04-19] MEDS: OLANZAPINE 5 MG TABLET PO SCH (10:28)
[2024-04-19 16:00] VITALS: BP 133/84; TEMP 98; O2SAT 96
[2024-04-19] MEDS: GUAIFENESIN 300 MG/15 ML UDC PO PRN (16:16)
[2024-04-19] MEDS ORDERED: LEVOFLOXACIN (250MG) 250 MG TABLET PO SCH (17:00)
[2024-04-19 20:26] VITALS: BP 138/84; TEMP 97.9; O2SAT 96
[2024-04-20 07:56] LABS: CALCIUM, SERUM 8.4 mg/dL (8.5-10.1); POTASSIUM 3.7 mmol/L (3.5-5.1)
[2024-04-20 08:00] VITALS: BP 155/86; TEMP 98.2; O2SAT 96
[2024-04-20 08:19] LABS: BASOPHILS % (AUTO) 0.4 % (0.0-2.0); EOSINOPHILS # (AUTO) 0.2 K/uL (0.0-0.7); EOSINOPHILS % (AUTO) 3.6 % (0.0-6.0); HEMATOCRIT 38 % (39-51); HEMOGLOBIN 12.7 g/dL (13.5-17.5); LYMPHOCYTES # (AUTO) 0.9 K/uL (0.8-4.8); LYMPHOCYTES % (AUTO) 14.3 % (20.0-44.0); MEAN CORPUSCULAR HEMOGLOBIN 30 PG (26.0-33.0); MEAN CORPUSCULAR HGB CONC 34 g/dl (31.0-36.0); MEAN CORPUSCULAR VOLUME 88 fL (80-96); MONOCYTES # (AUTO) 0.7 K/uL (0.1-1.30); MONOCYTES % (AUTO) 10.6 % (2.0-12.0); NEUTROPHILS # (AUTO) 4.4 K/uL (1.8-8.9); NEUTROPHILS % (AUTO) 71.1 % (43.0-81.0); PLATELET COUNT (AUTO) 260 K/uL (150-450); RED BLOOD CELL COUNT(AUTO) 4.31 MIL/uL (4.5-6.0); RED CELL DISTRIBUTION WIDTH 14.8 % (11.5-15.0); WHITE BLOOD COUNT (AUTO) 6.2 K/uL (4.3-11.0)
[2024-04-20] MEDS: LORAZEPAM 1 MG TABLET PO PRN ×2 (09:54→20:07)
[2024-04-20 16:00] VITALS: BP 159/84; TEMP 98.6; O2SAT 95
[2024-04-20] MEDS: ZOLPIDEM TARTRATE 5 MG TABLET PO PRN (21:43)
[2024-04-21 08:00] VITALS: BP 162/99; TEMP 97.9; O2SAT 97
[2024-04-21] MEDS: LACTULOSE 10 G/15 ML UDC (PYXIS) PO PRN (08:49)
[2024-04-21 16:00] VITALS: BP 153/89; TEMP 98.1; O2SAT 97
[2024-04-21 20:14] VITALS: BP 150/92; TEMP 98; O2SAT 97
[2024-04-22 08:00] VITALS: BP 146/78; TEMP 98.1; O2SAT 98
[2024-04-22] MEDS: OLANZAPINE 5 MG TABLET PO SCH (09:09)
[2024-04-22] MEDS: NITROFURANTOIN/MONOHYDRATE MACROCRYSTALS 100 MG CAPSULE PO SCH (11:29)
[2024-04-22 16:00] VITALS: BP 164/108; TEMP 98.6; O2SAT 98
[2024-04-22 20:14] VITALS: BP 130/88; TEMP 98.5; O2SAT 93
[2024-04-23 08:00] VITALS: BP 160/88; TEMP 98.7; O2SAT 98
[2024-04-23 16:00] VITALS: BP 165/102; TEMP 97.7; O2SAT 97
[2024-04-23 20:00] VITALS: BP 144/83; TEMP 97.9; O2SAT 98
[2024-04-24] MEDS: HYDROCODONE/APAP 5/325MG TABLET PO PRN (05:56)
[2024-04-24 08:00] VITALS: BP 185/100; TEMP 98; O2SAT 97
[2024-04-24] MEDS: AMLODIPINE BESYLATE 10 MG TABLET PO SCH (11:44)
[2024-04-24 16:00] VITALS: BP 180/80; TEMP 97.9; O2SAT 96
[2024-04-24 20:00] VITALS: BP 164/90; TEMP 98.9; O2SAT 98
[2024-04-24] MEDS: MAG HYDROX/AL HYDROX/SIMETH 30 ML UDC PO PRN (20:19)
[2024-04-24] MEDS: MAGNESIUM HYDROXIDE 30 ML UDC PO PRN (20:25)
[2024-04-25 08:00] VITALS: BP 159/97; TEMP 98.1; O2SAT 98
[2024-04-25 16:10] VITALS: BP 161/95; TEMP 98.6; O2SAT 93
[2024-04-25 20:00] VITALS: BP 165/99; TEMP 98.5; O2SAT 97
[2024-04-25] MEDS: LITHIUM CARBONATE (300 MG CAP) 300 MG CAPSULE PO SCH (21:20)
[2024-04-26 08:00] VITALS: BP 170/97; TEMP 97.8; O2SAT 97
[2024-04-26] MEDS: hydrALAZINE HCL 25 MG TABLET PO PRN (08:25)
[2024-04-26 09:25] LABS: THYROID STIMULATING HORMONE 1.1 uIU/mL (0.358-3.74)
[2024-04-26] MEDS: hydrALAZINE HCL 50 MG TABLET PO SCH (12:30)
[2024-04-26 16:00] VITALS: BP 140/81; TEMP 98.2; O2SAT 98
[2024-04-26 21:21] VITALS: BP 150/90; TEMP 97.9; O2SAT 98
[2024-04-27 08:00] VITALS: BP 113/98; TEMP 98; O2SAT 99
[2024-04-27 16:21] VITALS: BP 159/92; TEMP 98; O2SAT 98
[2024-04-27 20:25] VITALS: BP 160/97; TEMP 98; O2SAT 96
[2024-04-28 08:00] VITALS: BP 162/93; TEMP 98.4; O2SAT 99
[2024-04-28 16:00] VITALS: BP 167/97; TEMP 97.9; O2SAT 98
[2024-04-28] MEDS: OLANZAPINE 5 MG TABLET PO SCH (16:47)
[2024-04-28 20:30] VITALS: BP 131/90; TEMP 97.9; O2SAT 96
[2024-04-29 08:00] VITALS: BP 140/72; TEMP 98.7; O2SAT 96
[2024-04-29 16:00] VITALS: BP 156/82; TEMP 97.9; O2SAT 97
[2024-04-29 20:16] VITALS: BP 146/90; TEMP 98.7; O2SAT 94
[2024-04-30] MEDS: diphenhydrAMINE HCL 50 MG/ML VIAL IM ONE ×2 (06:35→09:35)
[2024-04-30] MEDS: HALOPERIDOL LACTATE INJ 5 MG/ML VIAL IM ONE ×2 (06:35→09:35)
[2024-04-30 08:00] VITALS: BP 119/63; TEMP 98.6; O2SAT 98
[2024-04-30] MEDS: LORAZEPAM INJ 2 MG/ML VIAL IM ONE (13:20)
[2024-04-30 16:00] VITALS: BP 123/76; TEMP 97.9; O2SAT 97
[2024-04-30] MEDS: BENZTROPINE MESYLATE (1 MG) 1 MG TABLET PO SCH (17:00)
[2024-04-30] MEDS: HALOPERIDOL 5 MG TABLET PO SCH (17:00)
[2024-04-30 20:00] VITALS: BP 132/68; TEMP 98.3; O2SAT 98
[2024-04-30] MEDS: OLANZAPINE 5 MG TABLET PO SCH (22:30)
[2024-05-01 08:00] VITALS: BP 126/76; TEMP 98.6; O2SAT 98
[2024-05-01] MEDS: chlorproMAZINE HCL 25 MG TABLET PO SCH (12:08)
[2024-05-01 16:00] VITALS: BP_SYST 100; BP_SYST 104; BP_DIAS 59; BP_DIAS 67; TEMP 98; TEMP 98.6; O2SAT 95; O2SAT 99
[2024-05-01 20:44] VITALS: BP 112/78; TEMP 98.8; O2SAT 99
[2024-05-02 08:00] VITALS: BP 139/90; TEMP 98.6; O2SAT 96
[2024-05-02] MEDS: chlorproMAZINE HCL 25 MG TABLET PO SCH (12:20)
[2024-05-02 20:00] VITALS: BP 116/73; TEMP 98.4; O2SAT 100
[2024-05-03 08:00] VITALS: BP 113/62; TEMP 98; O2SAT 98
[2024-05-03 16:00] VITALS: BP 119/61; TEMP 98; O2SAT 95
[2024-05-03 21:07] VITALS: BP 117/63; TEMP 98; O2SAT 96
[2024-05-04 08:00] VITALS: BP 142/73; TEMP 97.8; O2SAT 97
[2024-05-04 16:00] VITALS: BP 122/65; TEMP 98.1; O2SAT 97
[2024-05-04 20:12] VITALS: BP 111/66; TEMP 98.5; O2SAT 96
[2024-05-05] MEDS: HALOPERIDOL LACTATE INJ 5 MG/ML VIAL IM ONE (06:15)
[2024-05-05] MEDS: diphenhydrAMINE HCL 50 MG/ML VIAL IM ONE (06:15)
[2024-05-05 08:00] VITALS: BP 134/74; TEMP 97.9; O2SAT 96
[2024-05-05] MEDS: GABAPENTIN 100 MG CAPSULE PO SCH (12:59)
[2024-05-05] MEDS: LITHIUM CARBONATE (300 MG CAP) 300 MG CAPSULE PO SCH (12:59)
[2024-05-05 15:09] VITALS: BP 157/78; TEMP 97.8; O2SAT 96
[2024-05-06] MEDS: diphenhydrAMINE HCL 50 MG/ML VIAL IM ONE (04:05)
[2024-05-06] MEDS: HALOPERIDOL LACTATE INJ 5 MG/ML VIAL IM ONE (04:06)
[2024-05-06 08:00] VITALS: BP 145/71; TEMP 98.7; O2SAT 98
[2024-05-06] MEDS: chlorproMAZINE HCL 25 MG TABLET PO SCH (13:22)
[2024-05-06 16:00] VITALS: BP 95/56; TEMP 98.7; O2SAT 97
[2024-05-06 22:50] VITALS: BP 146/85; TEMP 97.2; O2SAT 97
[2024-05-07] MEDS: HALOPERIDOL LACTATE INJ 5 MG/ML VIAL IM STA (00:16)
[2024-05-07] MEDS: diphenhydrAMINE HCL 50 MG/ML VIAL IM STA (00:16)
[2024-05-07 08:00] VITALS: BP 137/79; TEMP 97.8; O2SAT 98
[2024-05-07] MEDS: OLANZAPINE ZYDIS 5 MG TAB.RAPDIS PO SCH (11:16)
[2024-05-07 16:00] VITALS: BP 154/86; TEMP 98; O2SAT 98
[2024-05-07 20:00] VITALS: BP 144/86; TEMP 98.6; O2SAT 97
[2024-05-07] MEDS: chlorproMAZINE HCL 25 MG TABLET PO SCH (22:00)
[2024-05-07] MEDS: DIVALPROEX SODIUM 500 MG TABLET.DR PO SCH (23:16)
[2024-05-08] MEDS: chlorproMAZINE HCL 25 MG TABLET ONE ×2 (00:45→00:52)
[2024-05-08 08:00] VITALS: BP 119/90; TEMP 98; O2SAT 100
[2024-05-08 16:00] VITALS: BP 140/76; TEMP 98.4; O2SAT 98
[2024-05-08 20:00] VITALS: BP 119/72; TEMP 98.5; O2SAT 100
[2024-05-09 08:00] VITALS: BP 102/60; TEMP 98; O2SAT 95
[2024-05-09 16:00] VITALS: BP 116/63; TEMP 98.1; O2SAT 98
[2024-05-09 19:54] VITALS: BP 122/65; TEMP 98.2; O2SAT 92
[2024-05-09] MEDS: chlorproMAZINE HCL 25 MG TABLET ONE (22:18)
[2024-05-10 08:00] VITALS: BP 152/95; TEMP 97.6; O2SAT 99
[2024-05-10 12:19] VITALS: BP 136/84
== END 2024-05-10 13:35 | DRG 885 ==
LOC: ER 12:40 → GPS 20:17
PROVIDERS: ADMIT Psychiatry & Neurology Psychosomatic Medicine; ATTEND Nurse Practitioner Family
DX: F33.2 Major depressive disorder, recurrent severe without psychotic features (principal); N18.9 Chronic kidney disease, unspecified; G93.41 Metabolic encephalopathy; N39.0 Urinary tract infection, site not specified; F03.93 Unspecified dementia, unspecified severity, with mood disturbance; F20.0 Paranoid schizophrenia; G40.909 Epilepsy, unspecified, not intractable, without status epilepticus; Z20.822 Contact with and (suspected) exposure to COVID-19; E11.22 Type 2 diabetes mellitus with diabetic chronic kidney disease; E78.5 Hyperlipidemia, unspecified; F12.10 Cannabis abuse, uncomplicated; G89.29 Other chronic pain; Z88.0 Allergy status to penicillin; B96.20 Unspecified Escherichia coli [E. coli] as the cause of diseases classified elsewhere; D63.8 Anemia in other chronic diseases classified elsewhere; G25.0 Essential tremor; J44.9 Chronic obstructive pulmonary disease, unspecified; Z88.2 Allergy status to sulfonamides; Z73.6 Limitation of activities due to disability; F29 Unspecified psychosis not due to a substance or known physiological condition; I12.9 Hypertensive chronic kidney disease with stage 1 through stage 4 chronic kidney disease, or unspecified chronic kidney disease; F39 Unspecified mood [affective] disorder; Z79.899 Other long term (current) drug therapy; Z91.199 Patient's noncompliance with other medical treatment and regimen due to unspecified reason
CPT/HCPCS: 36415; 73080-TC; 80048-TC; 80061-TC; 80076-TC; 80178-TC; 81001; 82607-TC; 82962-TC; 83921; 84439-TC; 84443-TC; 84481; 85025-TC; 87086-TC; 97116-TC; 98960; G0480; J1200; J1630; J2060; J3230; Q0161